=== PATIENT | female | born 1955 | race Hispanic/Latino ===

== ENCOUNTER → 2024-05-13 | Outpatient (REF) | payer MEDICARE ==
[~2024-05-13] MED LIST: DIATRIZOATE MEGL/DIATRIZOA SOD 30 ML BTL PO ONE; IOPAMIDOL 370 MG/ML 100 ML INFUS..BTL INJ ONE
[2024-05-13 13:16] LABS: CREATININE, SERUM 0.81 mg/dL (0.57-1.11)
== END ==
LOC: CT 12:07
PROVIDERS: ATTEND Nurse Practitioner Family
DX: R10.32 Left lower quadrant pain (principal)
CPT/HCPCS: 36415; 74177; 82565; 84520; Q9963; Q9967